=== PATIENT | female | born 1995 | race Caucasian/White ===

== ENCOUNTER 2023-11-05 06:58 | Outpatient (CLI) | payer BC, SELFPAY ==
--- NOTE | 2023-11-05 07:15 | US_ITS ---
Patient: PO GONCALVES Facility:?[facility] Patient ID:?[id number] Site Patient ID:?[id number]. Site :?[id number] Study:?US-OB Pelvis DATING AND VIABILITY-11/05/2023 7:31:16 AM Ordering Physician:ARPAN PINA Final Report: INDICATION: First trimester scan, establish dates. COMPARISON: None. TECHNIQUE: Real-time vásquez-scale imaging of the pelvis was performed. FINDINGS: Sonographic imaging demonstrates a single living intrauterine gestation. The embryo demonstrates a regular cardiac rate measuring 176 beats per minute. The embryo`s crown-rump length measurement of 2.2 cm corresponds to a gestational age of 8 weeks 6 days with a sonographic due date of 06/10/2024. There is a normal-appearing yolk sac. There are no gross abnormalities noted within the embryo at this early state of development. The gestational sac has a normal appearance. There is no evidence of a perigestational hemorrhage. The amount of fluid within the sac appears appropriate for gestational age. The cervix is closed. The myometrium appears normal. The ovaries are of normal size. Corpus luteal cyst left ovary. There are no suspicious fluid collections noted in the cul-de-sac. IMPRESSION: Normal first trimester OB ultrasound exam. Gestational age calculated at 8 weeks 6 days with a sonographic due date of 06/10/2024. Dictated by Mario Alberto Fernandes MD @ 11/05/2023 9:18:50 AM Signed by:?Mario Alberto Fernandes MD @11/05/2023 9:18:50 AM (Electronic Signature)
== END 2023-11-05 06:59 | disposition home or self-care (01) ==
PROVIDERS: Visit Provider Advanced Practice Midwife
DX: Z34.91 Encounter for supervision of normal pregnancy, unspecified, first trimester (principal); Z3A.08 8 weeks gestation of pregnancy
CPT/HCPCS: 76817; 86592; 86703; 86704; 86706; 86762; 86787; 86803; 86850; 86900; 86901; 87086; 87340

== ENCOUNTER 2024-01-01 12:43 | Outpatient (CLI) | payer BC, SELFPAY | END 2024-01-01 12:44 | disposition home or self-care (01) | LOC: NFLDREF 12:45 | PROVIDERS: Visit Provider Advanced Practice Midwife | DX: Z34.92 Encounter for supervision of normal pregnancy, unspecified, second trimester (principal); Z3A.16 16 weeks gestation of pregnancy | CPT/HCPCS: 81511 ==

== ENCOUNTER 2024-01-28 08:08 | Outpatient (CLI) | payer BC, SELFPAY ==
--- NOTE | 2024-01-28 08:15 | CRLHL7_ITS ---
For Patients: As a result of the Century Cures Act, medical imaging exams and procedure reports are released immediately into your electronic medical record. You may view this report before your referring provider. If you have questions, please contact your health care provider. INDICATION: Evaluate anatomy. COMPARISON: 11/05/2023 TECHNIQUE: Real time vásquez scale imaging of the fetus was performed as well as color Doppler analysis of the umbilical vessels. FINDINGS: Sonographic imaging demonstrates a single living intrauterine gestation. Fetus demonstrates a regular cardiac rate of 144 beats per minute. Fetus has a vertex position. The placenta lies anteriorly without evidence of placenta previa. Edge of the placenta is located 3.5 cm from the internal cervical os. Amniotic fluid volume appears normal. Single deepest vertical pocket: 5.1 cm. The cervix is closed and measures 3.7 cm in length. The composite ultrasound gestational age is calculated at 21 weeks 2 days with an estimated sonographic due date of 06/07/2024. The estimated weight is 424 grams which lies at the 83rd %. The following biometric measurements were obtained: Biparietal diameter: 5.1 cm/21 weeks 3 days 77th% Head circumference: 19.0 cm/21 weeks 2 days 68th% Abdominal circumference: 16.5 cm/21 weeks 4 days 71st% Femur length: 3.6 cm/21 weeks 2 days 64th% The HC/AC ratio measures: 1.15 range (1.06-1.24) On anatomic survey, there is a normal appearance of the cerebral ventricles, cavum septi pellucidi, cisterna magna and cerebellum. The nose, lips, and facial profile appear normal. The cervical, thoracic and lumbar spine are well visualized and appear normal. There is a normal four-chamber heart view and the left and right ventricular outflow tracts appear normal. The diaphragm and stomach appear normal. The kidneys and bladder also appear normal. There is a normal three-vessel cord and cord insertion site. The four extremities appear normal. IMPRESSION: Normal OB ultrasound exam with concordance of clinical and sonographic dating. No intrinsic abnormalities noted on anatomic survey. Note is made, however, that the three-vessel view is not imaged and a short-term follow-up could be considered to better evaluate. Dictated by Mario Alberto Fernandes MD @ 01/28/2024 10:40:47 AM (Electronically Signed)
== END 2024-01-28 08:09 | disposition home or self-care (01) ==
LOC: US 08:08
PROVIDERS: Visit Provider Advanced Practice Midwife
DX: Z34.92 Encounter for supervision of normal pregnancy, unspecified, second trimester (principal); Z3A.21 21 weeks gestation of pregnancy
CPT/HCPCS: 76805

== ENCOUNTER 2024-02-12 11:13 | Outpatient (CLI) | payer BC, SELFPAY ==
--- NOTE | 2024-02-12 11:15 | CRLHL7_ITS ---
For Patients: As a result of the Century Cures Act, medical imaging exams and procedure reports are released immediately into your electronic medical record. You may view this report before your referring provider. If you have questions, please contact your health care provider. INDICATION: f/u heart images COMPARISON: 01/28/2024 TECHNIQUE: Real-time vásquez-scale imaging of the pelvis was performed. FINDINGS: heart rate 141 beats per minute. Single deepest pocket 4.4 cm. Vertex position. Anterior placenta. Normal heart views. Normal profile, nose and lips. IMPRESSION: Normal heart structures. Dictated by Mario Alberto Fernandes MD @ 02/12/2024 12:38:59 PM (Electronically Signed)
== END 2024-02-12 11:14 | disposition home or self-care (01) ==
LOC: US 11:14
PROVIDERS: Visit Provider Advanced Practice Midwife
DX: O35.BXX0 Maternal care for other (suspected) fetal abnormality and damage, fetal cardiac anomalies, not applicable or unspecified (principal)
CPT/HCPCS: 76816

== ENCOUNTER 2024-03-18 15:34 | Outpatient (CLI) | payer BC, SELFPAY | END 2024-03-18 15:35 | disposition home or self-care (01) | LOC: NFLDREF 03-22 18:07 | PROVIDERS: Visit Provider Advanced Practice Midwife | DX: Z34.03 Encounter for supervision of normal first pregnancy, third trimester (principal) | CPT/HCPCS: 86592 ==

== ENCOUNTER 2024-05-20 17:27 | Outpatient (CLI) | payer BC, SELFPAY ==
[2024-05-21 22:28] LABS: Strep B DNA Probe Negative (Negative)
[2024-05-22 02:34] LABS: Strep B Susceptibility Needed? No
== END 2024-05-20 17:28 | disposition home or self-care (01) ==
LOC: NFLDREF 17:27
PROVIDERS: Visit Provider Advanced Practice Midwife
DX: Z34.93 Encounter for supervision of normal pregnancy, unspecified, third trimester (principal); Z3A.36 36 weeks gestation of pregnancy
CPT/HCPCS: 87081; 87653

== ENCOUNTER 2024-06-09 08:44 | Inpatient (IN) | payer BC, SELFPAY ==
[2024-06-09] VITALS (19 sets, daily range): BP systolic 137–158; BP diastolic 77–105; PULSE 61–85; RESP 17–18; TEMP 36.6–37; O2SAT 96–98; BMI 29.6
[2024-06-09 08:05] LABS: Hemoglobin* 13.5 gm/dL (12.0-16.0); Mean Corpuscular HGB Conc 34 gm/dL (32-36); Mean Corpuscular Hemoglobin 29 pg (26-34); Mean Corpuscular Volume 85 fL (80-100); Platelet Count* 137 K/uL (140-440); Red Blood Count 4.69 m/uL (4.00-5.20); White Blood Count* 8.08 K/uL (4.50-11.00)
[2024-06-09 08:08] LABS: Slide Review Reflex No
[2024-06-09 08:17] LABS: Alanine Aminotransferase* 16 U/L (4-35); Aspartate Amino Transferase* 27 U/L (12-35)
[2024-06-09 08:18] LABS: Blood Urea Nitrogen* 12 mg/dL (5-24)
[2024-06-09 08:24] LABS: Creatinine Urine 155.7 mg/dL
[2024-06-09 08:30] LABS: Protein Creatinine Ratio Urine 3.56 (0-0.19); Total Protein Urine 555 mg/dL
[2024-06-09] MEDS: OXYTOCIN 10 UNIT/ML INJ IM (09:35)
--- NOTE | 2024-06-09 10:07 | W.PM.LDBA ---
Subjective History of Present Illness Narrative: Terrell is being admitted to Labor and Delivery for active labor. She is a 28 year old at 39.5 weeks gestation. Her full history and physical was dictated by Kenny Pal CNM on 05/27/24. Please see this for details. Terrell woke up to contractions around 0300 this am and they increased in intensity. She is appreciating good movement and denies bleeding or leaking fluid. She was 4cm per RN exam on admit and a recheck 1 hr later she was 6cm with a bulging bag. She was admitted at that time. Her blood pressures on admit were elevated at 140-150/90's. Consulted with Dr. Brumfield who did not want to start medications at that time. Her p/c ratio was 3.56 and the rest of her labs were normal. She denies headache, visual changes, or RUQ pain. Diagnosed with preeclampsia without severe features. Will continue to monitor blood pressures and consider medications if they increase. Specific Issues/Plans G1 Partner: Reyna H&P 05/27/24 by Kenny Pal CNM -hx migraines -GERD not currently on medications -Hx of frequent UTI's -Repeat US in 10-14 days, unable to see 3VV. Normal heart views on repeat scan. TDAP: Declines 32wk Mental Health PHQ: 3 JERED: 3 OB - Problem Based A/P Additional Plan (1) Pain during labor: Status: Acute (2) Pre-eclampsia: Status: Acute Plan ASSESSMENT:? at 39.5 weeks gestation? GBS negative? Uncomplicated ? Elevated BP on admit. Preeclampsia without severe features based on BPs and elevated P/C ratio.? Blood type:?O+ ?? PLAN:? 1. Candidate for analgesia of choice. Planning unmedicated .? 2. Monitor blood pressures. Consult with OB to consider medications if continue to be elevated.? 3. Anticipate ? 4. Expectant management at this time.? 5. IV and monitoring plan per unit policy for preeclampsia Delivery/Labor/Induction Plan Plan: expectant management OB Result Labs Blood Type: O (+) positive Rubella: immune RPR/VDLR: nonreactive GBS Status: negative HBsAG: negative OB Exam Physical Exam Vital signs: Temp Pulse Resp BP Pulse Ox 97.8 F 73 18 151/77 H 96 12/02/24 07:32 06/09/24 10:00 06/09/24 07:32 06/09/24 10:00 06/09/24 07:32 Narrative: Psychiatric:? Alert and oriented x3? HEENT:? Normocephalic, atraumatic? Neck:? Supple without adenopathy or thyromegaly? Lungs:? Clear to auscultation bilaterally? Heart:? Regular rate and rhythm, no murmur, rub or gallop? Abdomen:? Soft, nontender, and gravid? Extremities:? No edema or erythema? Detailed Labor and Delivery Exam Patient Gravid: Yes Dilation (cm): 6 Effacement (%): 90 Cervix position: mid Consistency: soft Contraction Frequency: 2-4 Tachysystole: No Contraction intensity: Strong/Firm Fetus (Single) Station: 0 Amniotic Membrane Status: intact Heart Rate Baseline: 120 Monitor Accelerations: Present Monitor Decelerations: None School Transportation Director Variability: Moderate (6-25)
[2024-06-09] MEDS: NIFEdipine 30 MG TAB.ER.24 PO ×2 (10:53→21:04)
[2024-06-09] MEDS: ACETAMINOPHEN 500 MG TABLET 1000 MG PO ×3 (10:58→22:44)
[2024-06-09] MEDS: IBUPROFEN 600 MG TABLET PO ×2 (13:05→19:15)
--- NOTE | 2024-06-09 17:38 | W.PM.OBVAGDE ---
OB Procedure Vag Delivery Mother Details Mother Details: The patient is a 28 year-old, 1, Para 1, admitted on 06/09/24 at 39.5Days gestation. : 1 Para: 1 Weeks Gestation: 39.5 Admission Date: 06/09/24 Additional Details Amniotic Membrane Status: SROM Amniotic Membrane Rupture Date: 06/09/24 Amniotic Membrane Rupture Time: 09:07 Amniotic Membrane Fluid Description: Clear Analgesia/Anesthesia Type: None Waterbirth: No Pitcoin: Yes ([facility] only) Intrapartal Events: Precipitous Labor <3 Hrs Labor Onset: 08:36 Complete: 09:03 Pushin:03 Heart: heart tones during second stage were difficult to trace due to maternal position, rapid descent, and short second stage. Category 2 with baseline 120, + accels, variable decel. Delivery Details Delivery Date: 06/09/24 Delivery Time: 09:10 Route of delivery: Infant Gender: Female Viability: Alive; Heart Rate Present Position at Delivery: OA Delivery Details: Patient was admitted for active labor. She began suzette at home around 0300 and presented in labor around 0720. She progressed rapidly to complete. SROM noted at 0907 with clear fluid. Patient was assumed complete with spontaneous pushing and confirmed at 0903. of a viable female at 0910 in standing and leaning over the counter in the labor room. Vertex delivered OA. No nuchal cord or shoulder. Body delivered easily and without incident. passed to mothers abdomen with a vigorous cry. Cord was clamped and cut at > 5 minutes. APGARS were 9 at one minute and 9 at five minutes respectively. Mouth was bulb suctioned. Intact placenta with a 3 vessel cord delivered spontaneously at 0927. Fundus firm. Small bilateral periurethral lacerations identified and repaired in typical fashion. QBL 200mL and 100mL EBL on the mat and on the bed before the drape was placed under her. Mother and baby stable; mother plans to breastfeed. Infant weight pending.? 1 Minute Interval Total Score: 9 5 Minute Interval Total Score: 9 Additional Details Shoulder Dystocia: No Placenta Delivery Time: 09:27 Placental Delivery Description: Spontaneous Procedure Done: Global Blood Loss: 350 Laceration: Periurethral - 1st Degree (not repaired) Episiotomy Description: None Blood Loss Measurement Type: QBL Bakri Used: No Sponge/Need Count Correct: Yes Cord Vessel Description: 3 Vessels Event Summary Status: Mother and infant were stable after delivery. Disposition: floor
[2024-06-10] VITALS (7 sets, daily range): BP systolic 123–138; BP diastolic 82–93; PULSE 73–82; RESP 16–18; TEMP 36.6–37.1; O2SAT 94–96
[2024-06-10] MEDS: LANOLIN CREAM 1 APPLIC TOPICAL (01:37)
[2024-06-10] MEDS: IBUPROFEN 600 MG TABLET PO ×4 (01:37→21:59)
[2024-06-10] MEDS: ACETAMINOPHEN 500 MG TABLET 1000 MG PO ×3 (04:34→20:35)
[2024-06-10] MEDS: SIMETHICONE 80 MG TAB.CHEW PO (04:34)
[2024-06-10 07:01] LABS: Hemoglobin* 10.8 gm/dL (12.0-16.0)
--- NOTE | 2024-06-10 07:57 | PM.OBPNVD1 ---
OB - PN:Subj Subjective Date Seen: 06/10/24 Narrative: Terrell is a 28 y.o. who was admitted to L & D for labor.? She had an uncomplicated NVD.? ?? The patient feels well.? The pain is well controlled with current medications.? She has no new complaints.? She is breast feeding and reports things are going well.? the patient has done well.? Vitals have been stable. She was started on Nifedipine for her blood pressures yesterday. Blood pressures have regulated to 130-80's on average since.? She has remained afebrile.? Has a good appetite, is tolerating a general diet.? She is voiding without difficulty.? She is passing gas and has not had a bowel movement.? She is ambulating and denies any dizziness.? Has Small amount of rubra lochia.? OB - PN: Obj Exam Physical Exam: Vital signs: Temp Pulse Resp BP Pulse Ox O2 Del Method 97.9 F 73 16 129/82 95 Room Air 06/10/24 04:49 06/10/24 04:49 06/10/24 04:49 06/10/24 04:49 06/10/24 04:49 06/10/24 04:49 Narrative: GENERAL APPEARANCE:? normal affect, alert, no distress? MOOD:? appropriate? HEENT: normocephalic, neck supple, full ROM? CHEST:? Symmetrical chest wall movement.? Normal respiratory effort.? Clear to auscultation ? HEART:? regular rate and rhythm? ABDOMEN:? soft, non-tender. Uterine fundus is firm, at Umbilicus, Midline and is appropriate for the stage of recovery.? Bowel sounds present.? PERINEUM:? mild edema of the perineum, there is a 1st degree laceration that is healing well.? EXTREMITIES:? normal and no edema? OB - PN: Obj Data Labs Labs: Laboratory Results - last 24 hr 06/09/24 06/09/24 06/10/24 07:57 08:00 06:36 WBC 8.08 RBC 4.69 Hgb 13.5 10.8 L Hct 40.0 MCV 85 MCH 29 MCHC 34 Plt Count 137 L BUN 12 AST 27 ALT 16 Urine Creatinine 155.7 Protein/Creatinin Ratio 3.56 H Urine Total Protein 555 OB - PN: A/P Delivery Assessment and Plan (1) Pre-eclampsia: Status: Acute (2) care and examination of lactating mother: Status: Acute Plan day: 1 Plan: routine care Comments: G 1 P 1 status post uncomplicated NVD??? 1.? Continue route PP cares? 2.? .? May see if desired? 3.? Anticipate discharge home tomorrow? 4. ?Acute anemia.? Iron supplement ordered 5. Blood pressures stable on Nifedipine 30mg BID
[2024-06-10] MEDS: NIFEdipine 30 MG TAB.ER.24 PO ×2 (08:45→22:00)
[2024-06-10] MEDS: FERROUS SULFATE 325 MG TABLET PO (08:45)
[2024-06-10] MEDS: DOCUSATE SODIUM 100 MG CAPSULE PO (08:45)
[2024-06-10 10:48] LABS: Hematocrit 35.3 % (33.0-51.0); Mean Corpuscular HGB Conc 34 gm/dL (32-36); Mean Corpuscular Hemoglobin 29 pg (26-34); Mean Corpuscular Volume 86 fL (80-100); Platelet Count* 132 K/uL (140-440); Red Blood Count 4.13 m/uL (4.00-5.20); White Blood Count* 10.11 K/uL (4.50-11.00)
[2024-06-10 10:56] LABS: Slide Review Reflex No
[2024-06-10 11:01] LABS: Alanine Aminotransferase* 19 U/L (4-35); Aspartate Amino Transferase* 45 U/L (12-35); Blood Urea Nitrogen* 9 mg/dL (5-24); Creatinine* 0.6 mg/dL (0.5-1.5); Est. Creatinine Clearance* 148.49; Estimated Glomerular Filt Rate 127 ml/min
[2024-06-11 01:47] VITALS: BP 139/97; PULSE 84; RESP 16; O2SAT 95
[2024-06-11 01:54] VITALS: BP 143/95; PULSE 72; RESP 16; O2SAT 96
[2024-06-11] MEDS: SIMETHICONE 80 MG TAB.CHEW PO (02:06)
[2024-06-11 02:08] VITALS: BP 135/91; PULSE 78
[2024-06-11 04:00] VITALS: BP 132/86; PULSE 80; RESP 16; TEMP 36.6; O2SAT 95
[2024-06-11] MEDS: ACETAMINOPHEN 500 MG TABLET 1000 MG PO ×2 (04:13→09:44)
[2024-06-11 06:50] LABS: Hematocrit 32.6 % (33.0-51.0); Hemoglobin* 10.8 gm/dL (12.0-16.0); Mean Corpuscular HGB Conc 33 gm/dL (32-36); Mean Corpuscular Hemoglobin 29 pg (26-34); Mean Corpuscular Volume 87 fL (80-100); Platelet Count* 134 K/uL (140-440); Red Blood Count 3.76 m/uL (4.00-5.20); White Blood Count* 9.29 K/uL (4.50-11.00)
[2024-06-11] MEDS: IBUPROFEN 600 MG TABLET PO ×2 (07:08→12:49)
[2024-06-11 07:15] LABS: Alanine Aminotransferase* 19 U/L (4-35); Aspartate Amino Transferase* 43 U/L (12-35); Creatinine* 0.6 mg/dL (0.5-1.5); Est. Creatinine Clearance* 148.49; Estimated Glomerular Filt Rate 127 ml/min
[2024-06-11 07:16] LABS: Blood Urea Nitrogen* 9 mg/dL (5-24)
[2024-06-11 07:18] LABS: Slide Review Reflex No
[2024-06-11 09:20] VITALS: BP 136/86; PULSE 76; RESP 16; TEMP 36.6; O2SAT 95
[2024-06-11] MEDS: NIFEdipine 30 MG TAB.ER.24 PO (09:26)
[2024-06-11] MEDS: DOCUSATE SODIUM 100 MG CAPSULE PO (09:26)
--- NOTE | 2024-06-11 09:28 | PM.OBDSVD1 ---
DS: Providers Provider Date Seen: 06/11/24 Date of admission: 06/09/24 08:44 Primary care physician: Not a Local Provider Admitting Clinician: Nighat Pal CNM Attending Physician on discharge: Nidhi Osorio CNM DS: Diagnosis Discharge Diagnosis (1) care and examination of lactating mother: Status: Acute (2) Pre-eclampsia: Status: Acute Exam Narrative: Exam Narrative: GENERAL APPEARANCE:? normal affect, alert, no distress MOOD:? appropriate CHEST:? clear to auscultation HEART:? regular rate and rhythm ABDOMEN:? soft, non-tender the uterine fundus is At Umbilicus, Midline and is appropriate for the stage of recovery. PERINEUM:? mild edema of the perineum, there is a periurethral Laceration, that is healing well. EXTREMITIES:? normal and no edema Const: Vital Signs, click to edit/add: Vital Signs - 24 hr 06/10/24 12:25 06/10/24 16:16 06/10/24 20:34 Temperature 98.7 F 98.6 F Pulse Rate [Pulse Oximeter] 75 73 Respiratory Rate 16 16 Blood Pressure [Le ft Arm] 132/89 132/89 138/93 H Pulse Oximetry 94 94 Oxygen Delivery Me thod Room Air Room Air 06/10/24 22:13 06/11/24 01:47 06/11/24 01:54 Temperature 98.2 F Pulse Rate [Pulse Oximeter] 82 84 72 Respiratory Rate 16 16 16 Blood Pressure [Le ft Arm] 125/82 139/97 H 143/95 H Pulse Oximetry 96 95 96 Oxygen Delivery Me thod Room Air Room Air Room Air 06/11/24 02:08 06/11/24 04:00 Temperature 98 F Pulse Rate [Pulse Oximeter] 78 80 Respiratory Rate 16 Blood Pressure [Le ft Arm] 135/91 H 132/86 Pulse Oximetry 95 Oxygen Delivery Me thod Room Air OB - DS: Summary Hospital Course Hospital Course: Terrell is a 28 y.o. G 1 P 1 who was admitted to L & D for spontaneous onset of labor. ?She had a NVD that was uncomplicated. Her labor and was complicted by elevated blood pressures. She was started on BID Nifedipine 30mg. The patient feels well. ?The pain is well controlled with current medications. ?She has no new complaints. ?She is breast feeding and reports things are going well. the patient has done well.? Vitals have been stable.? She has remained afebrile.? Has a good appetite, is tolerating a general diet. ?She is voiding without difficulty.? She is passing gas and has not had a bowel movement.? She is ambulating and denies any dizziness.? Has small amount of rubra lochia. She is planning condoms/NFP for prevention. Problems: Pre-eclampsia without SF plan: Discharge home with baby. Follow up in 2 weeks and 6 weeks. , may see if needed Hgb 10.8. Recommended to continue . Pre-E diagnosed by elevated BP greater than 4 hours apart Labs WNL, AST increased slightly but is stable with trending Discharge home with BP cuff if does not already have one Follow up on Sunday Call for signs/symptoms of preeclampsia Peripartum Data Infant delivery method: Vaginal Laceration description: Periurethral - 1st Degree complications: none Infant Gender: Female Infant Discharge Plan: Home Status at Discharge Functional status at discharge: independent ambulation Overall status at discharge: patient is progressing back to baseline Time Spent with Patient Time attestation: Total time spent providing and/or coordinating discharge services: Time spent: Less than 30 minutes Discharge Plan Discharge Disposition: Home, Self-Care Date of Admission: 06/09/24 08:44 Primary Care Provider: Provider,Not a Local Condition: Stable Anticipated Discharge Date/Time: 06/11/24 12:00 Discharge Medications: New nifedipine 30 mg Tablet Extended Release 24hr 30 mg PO BID Qty: 60 0RF docusate sodium 100 mg Capsule 100 mg PO DAILY Qty: 60 0RF ibuprofen 600 mg Tablet 600 mg PO Q6H PRNQty: 60 0RF acetaminophen 500 mg Tablet 1,000 mg PO Q6H PRN (Reason: pain/fever) Qty: 0 0RF Continued DHA 200 mg capsule 200 mg PO DAILY magnesium glycinate 118 mg magnesium capsule 1 mg PO DAILY calcium carbonate [Tums] 200 mg calcium (500 mg) tablet,chewable 200 mg PO BID Hydrating Electrolyte SF Powder In Packet 1 ea PO DAILY cetirizine [Zyrtec] 10 mg tablet 10 mg PO QDAY PRN Discharge Orders: Discharge Order (Routine); Ordered 06/11/24 Ordered By: Nidhi Osorio Patient Education: OB Over the Counter Medication Information, OB Vaginal/Breast Feeding Activity Level: Activity as Tolerated Discharge Diet: Regular Follow Up Appointments: [facility] [Provider Group] Forms: [email or web address] Info Instructions
== END 2024-06-11 14:31 | disposition home or self-care (01) | DRG 560 ==
LOC: OB OUT 08:45 → OB 08:45
PROVIDERS: Advanced Practice Midwife; Admitting Provider Advanced Practice Midwife; Visit Provider Advanced Practice Midwife
DX: O14.04 Mild to moderate pre-eclampsia, complicating childbirth (principal); O70.0 First degree perineal laceration during delivery; Z3A.39 39 weeks gestation of pregnancy; Z37.0 Single live birth; K21.9 Gastro-esophageal reflux disease without esophagitis; Z86.69 Personal history of other diseases of the nervous system and sense organs; Z87.440 Personal history of urinary (tract) infections
CPT/HCPCS: 36415; 82565; 82570; 84156; 84450; 84460; 84520; 85018; 85027; 88307; A9270; J2590

== ENCOUNTER 2024-06-25 12:54 | Outpatient (CLI) | payer BC, SELFPAY ==
--- NOTE | 2024-06-25 14:35 | W.PM.LAC.MC ---
Consult Note - Mom Date of Visit Date of visit: 06/25/24 Reason for consultation: Assistance Needed and Breast/Nipple Issue Visit Code: Visit Patient's Information Phone number: [phone] : 1 Para: 1 Allergies amoxicillin Allergy (Mild, Verified 06/23/24 11:00) Rash Mother's Medical History: Medical History (Updated 06/19/24 @ 00:01 by Background Daemon) History of frequent urinary tract infections ?Z87.440 - Personal history of urinary (tract) infections (ICD-10) Hx of migraines ?Z86.69 - Personal history of other diseases of the nervous system and sense organs (ICD-10) Work Plans: return to work on 10/13/24 Delivery Information Delivery type: Vaginal Gestational Age: 39+5 Gestational Weight For Age: AGA Weight: 3.825 kg Baby's Information Baby's Age at Visit: 16 days Baby's Provider or Clinic: [facility] Jaundice: No Past Experience Past Experience: No Current Frequency of Day Feedings: every 3 hours Frequency of Night Feedings: 2 times/night 4-6 hour stretches Both Breasts: Yes Suck: strong Latch: wide, deep, but needs help flanging out lips Length of Time: 15 min ea kenyetta Goals: 1 year Pumping Pumping: No Supplementing EBM Supplement: No Formula Supplement: No Baby Elimination Number of Wet Diapers a Day: ea feeding Number of BM a Day: 4/day-yellow, seedy Breast/Nipple Condition Breast Information: Breasts are symmetrical with rounded lower quadrants, intramammary distance is less than 1.5 inches. No erythema. Nipples are supple, everted prior to feeding. Breast Shape: Round Engorgement: No Maternal Nipple Condition - Left: Cracking/ Fissures (red, macerated looking) Maternal Nipple Condition - Right: Cracking/ Fissures (red, macerated looking) Sore Nipples: Yes Interventions for Sore Nipples: Lansinoh/Nipple Cream and Other (Silverettes, washing daily) Baby Assessment Skin: Normal Tongue/frenulum: Restricted mid-range Palate: Narrow (slight) Lips: Relaxed and Symmetrical Jaw Alignment: Symmetrical Mucosa: [place], moist Onsite Observation Pre-Feed weight: 3.966 kg Post-Feed weight: 4.05 kg Milk Transferred (mL): 84 Position: Cross cradle Attachment/latch-on achieved: Easily Suck pattern: Suck burst and normal rest Swallow: Audible, consistent and Gulping Behavior following feed: Alert, content Pre-Nursing Left Nipple: Crusting/Scabs Pre-Nursing Right Nipple: Crusting/Scabs Post-Nursing Left Nipple: Redness and Crusting/Scabs Post-Nursing Right Nipple: Redness and Crusting/Scabs Assessments/Interventions Assessments/Interventions: Worked with mom to bring baby on for a deeper latch; slight improvement in comfort. Mom mainly has pain at beginning of feedings and then in between feedings. Nipples well rounded after feeding with only slight creasing; mostly look irritated from excess moisture Does not let water in a shower hit her nipples due to pain When she gets cold her nipples hurt; a heating pad after nursing has been helpful for this Discussed wound healing measures: Stop silverettes, continue with nipple balm, try Thera shells for change in healing option Has questions about pumping for a little extra milk supply as well as introducing bottles and giving her nipples a break for 1 feeding a day Discussed this routine as well as bottle options Baby appears to have a posterior tie noted when crying and given inability to get bottom lip flanged out independently and irritation to mom's nipples. Education provided: Early feeding cues to maximize timing of latching, Asymmetric latch technique for wide/deep latch to increase milk, Transfer for baby and increase comfort for mom, Supply/demand nature of milk supply, Sore nipple treatment options, Alternative feeding methods (SNS, cup, finger feeding, bottling) and Milk collection, storage Handouts Provided: Tongue tie release providers Providers for chiropractic and/or craniosacral therapy Follow-Up Suggested follow up: Appointment as needed Time Spent Time spent with patient (min): 90 Meds Home Medications and Allergies Home Medications ?Medication ?Instructions ?Recorded ?Confirmed ?Type docosahexaenoic acid 200 mg 200 mg PO DAILY 11/05/23 06/23/24 History capsule ( DHA) cetirizine 10 mg tablet (Zyrtec) 10 mg PO QDAY PRN 02/12/24 06/23/24 History pwfzaseqbqet-cmmtenvikuus-akhno 1 ea PO DAILY 04/01/24 06/23/24 History acids oral powder packet (Hydrating Electrolyte SF oral powder packet) magnesium glycinate 1 mg PO DAILY 04/01/24 06/23/24 History Allergies Allergy/AdvReac Type Severity Reaction Status Date / Time amoxicillin Allergy Mild Rash Verified 06/23/24 11:00
== END 2024-06-25 12:55 | disposition home or self-care (01) ==
PROVIDERS: Visit Provider Advanced Practice Midwife
DX: Z39.1 Encounter for care and examination of lactating mother (principal)
CPT/HCPCS: G0463

== ENCOUNTER 2024-08-08 08:30 | Outpatient (RCR) | payer BC, SELFPAY | END 2024-11-03 15:45 | disposition home or self-care (01) | PROVIDERS: Visit Provider Advanced Practice Midwife | DX: N81.89 Other female genital prolapse (principal); N39.3 Stress incontinence (female) (male); R10.2 Pelvic and perineal pain; Z51.89 Encounter for other specified aftercare | CPT/HCPCS: 97110; 97112; 97140; 97161 ==